=== PATIENT | female | born 1955 | race Caucasian/White ===

== ENCOUNTER 2017-01-07 12:14 | Outpatient (CLI) | payer BC | END 2017-01-07 12:15 | disposition home or self-care (01) | DX: I51.7 Cardiomegaly (principal) ==

== ENCOUNTER 2020-09-15 12:37 | Outpatient (CLI) | payer BC ==
--- NOTE | 2020-09-16 13:39 | Mammography Report ---
BILATERAL DIGITAL SCREENING MAMMOGRAM 3D/2D: 09/15/2020 CLINICAL: Routine screening. Comparison is made to exams dated: 01/07/2014 mammogram and 01/12/2013 mammogram - [facility]. There are scattered fibroglandular elements in both breasts. No significant masses, calcifications, or other findings are seen in either breast. There has been no significant interval change. IMPRESSION: NEGATIVE There is no mammographic evidence of malignancy. A 1 year screening mammogram is recommended. This exam was interpreted at Station ID: [id number]. NOTE: For mammograms, a report in lay terms will be sent to the patient. Approximately 15% of breast malignancies will not be visualized mammographically. In the management of a palpable breast mass, a negative mammogram must not discourage biopsy of a clinically suspicious lesion. Electronically Signed By: Vance Min M.D. aty/penrad:09/15/2020 14:06:13 ACR BI-RADS Category 1: Negative 3341F PARENCHYMAL PATTERN: (A) - The breast(s) demonstrate(s) scattered fibroglandular densities. BI-RADS CATEGORY: (1) - 1 RECOMMENDATION: (ANNUAL) - Recommend routine annual screening mammography. [id number] 1 year screening LATERALITY: (B)
== END 2020-09-15 12:38 | disposition home or self-care (01) ==
LOC: DI.N 12:37
DX: Z12.31 Encounter for screening mammogram for malignant neoplasm of breast (principal)
CPT/HCPCS: 77063; 77067

== ENCOUNTER 2020-10-08 12:39 | Outpatient (CLI) | payer BC ==
--- NOTE | 2020-10-08 17:46 | DEXA Report ---
PROCEDURE: Dexa Spine and/or Hip INDICATIONS: SCREENING FOR OSTEOPOROSIS TECHNIQUE: Dual energy x-ray absorptiometry (DXA) was performed on a [employer]. Regions measur ed are the AP Spine, femoral neck, and if needed forearm. COMPARISON: None. FINDINGS: Lumbar Spine: Bone Mineral Density 1.21 to g/cm/cm,T score 0.3, normal Left Hip: Bone Mineral Density 1.104 g/cm/cm,T score 0.8, normal Left Femoral Neck: Bone Mineral Density 1.072 g/cm/cm, T score 0.2, normal (T score greater or equal to -1.0: NORMAL) (T score from -1.1 to -2.4: OSTEOPENIA) (T score less than or equal to -2.5 to: OSTEOPOROSIS) Impression: Normal bone mineral density. Patients with diagnosis of osteoporosis or osteopenia should have regular bone mineral density assess ment. For those eligible for Medicare, routine testing is allowed once every 2 years. Testing frequ ency can be increased for patients who have rapidly progressing disease or for those who are receivin g medical therapy to restore bone mass. Reviewed by: Litzy Alexander MD, PhD on 10/08/2020 5:45 PM PST Approved by: Litzy Alexander MD, PhD on 10/08/2020 5:45 PM PST Station ID: [id number]
== END 2020-10-08 12:40 | disposition home or self-care (01) ==
LOC: DI 12:39
PROVIDERS: ATTEND Naturopath
DX: Z13.820 Encounter for screening for osteoporosis (principal)

== ENCOUNTER 2020-12-09 16:02 | Outpatient (CLI) | payer BC ==
--- NOTE | 2020-12-11 03:16 | Ultrasound Report ---
PROCEDURE: Chest INDICATIONS: LT SIDE ABD LUMP TECHNIQUE: Scanning over the area of current clinical concern was performed. COMPARISON: None. FINDINGS: The area of reported "lump" was identified by the patient and then evaluated sonographically. There i s a vaguely identifiable ovoid lnvpwoozw-eo-szua wall-fat layer presumed lipoma measuring 1.1 x 0.4 x 0.9 cm. IMPRESSION: Presumed small lipoma as cause of the palpable abnormality noted by the patient. This area should be further evaluated clinically over time and if unusual tenderness or increasing mass effect develops M R scanning with contrast would be recommended. Reviewed by: Alexx Clement MD on 12/10/2020 10:51 AM PST Approved by: Alexx Clement MD on 12/10/2020 10:51 AM [facility] Station ID: [id number]
== END 2020-12-09 16:03 | disposition home or self-care (01) ==
LOC: DI 16:02
PROVIDERS: ATTEND Internal Medicine
DX: R19.00 Intra-abdominal and pelvic swelling, mass and lump, unspecified site (principal); M54.5 Low back pain

== ENCOUNTER 2020-12-09 16:15 | Outpatient (CLI) | payer BC ==
--- NOTE | 2020-12-10 10:54 | Ultrasound Report ---
PROCEDURE: Retroperitoneal INDICATIONS: LOW BACK PAIN TECHNIQUE: Real-time scanning was performed of the retroperitoneal organs, with image documentation. COMPARISON: Body wall ultrasound performed same day.. FINDINGS: Kidneys: Kidneys are normal in size. Right kidney measures 10.3 cm long; left kidney measures 10.0 cm long. Right renal cortical thickness is 1.4 cm; left renal cortical thickness is 1.5 cm. No danyel d masses, hydronephrosis, or nephrolithiasis. Pancreas: Visualized portions of the pancreas are sonographically normal. Aorta: Visualized aorta is normal in caliber at 3 cm or less. Iliac arteries: Proximal common iliac arteries are normal in caliber at 2.5 cm or less. IVC: Intrahepatic inferior vena cava is patent. Miscellaneous: No free abdominal fluid. The prevoid bladder volume is 301 cc, postvoid residual is 1.8 IMPRESSION: Normal-appearing urinary tract with normal bladder function. Depending on the clinical status follow- up spine evaluation may be warranted by MRI or plain film imaging. Reviewed by: Alexx Clement MD on 12/10/2020 10:53 AM [facility] Approved by: Alexx Clement MD on 12/10/2020 10:53 AM [facility] Station ID: [id number]
== END 2020-12-09 23:59 | disposition home or self-care (01) ==
LOC: DI 16:15
PROVIDERS: ATTEND Naturopath
DX: M54.5 Low back pain (principal)

== ENCOUNTER 2021-01-12 08:00 | Outpatient (CLI) | payer BC ==
[2021-01-13 10:29] LABS: BILIRUBIN,URINE NEGATIVE (NEGATIVE); GLUCOSE, URINE (UA) NEGATIVE (NEGATIVE); KETONES,URINE (UA) NEGATIVE (NEGATIVE); LEUKOCYTE ESTERASE, URINE NEGATIVE (NEGATIVE); NITRITE,URINE NEGATIVE (NEGATIVE); OCCULT BLOOD,URINE NEGATIVE (NEGATIVE); PH,URINE 5.5 PH (5.0-7.5); PROTEIN,URINE NEGATIVE (NEGATIVE); UROBILINOGEN,URINE 0.2 (NORMAL) E.U./dL (NORMAL)
[2021-01-13 10:35] LABS: CLARITY,URINE CLEAR (CLEAR)
[2021-01-13 10:56] LABS: BACTERIA,URINE Few /HPF (None Seen); RBC,URINE 0-5 /HPF (0-5); SQUAMOUS EPITHELIAL CELL,UR FEW Squamous (<= Few); WBC,URINE 0-3 /HPF (0-5)
== END 2021-01-12 23:59 | disposition home or self-care (01) ==
LOC: LAB.R 08:00
PROVIDERS: ATTEND Obstetrics & Gynecology
DX: N89.8 Other specified noninflammatory disorders of vagina (principal); R30.0 Dysuria
CPT/HCPCS: 81001; 87086

== ENCOUNTER 2021-02-04 17:17 | Outpatient (CLI) | payer BC ==
[2021-02-04 20:04] LABS: BACTERIAL VAGINOSIS DNA POSITIVE (NEGATIVE); CANDIDA KRUSEI DNA NEGATIVE (NEGATIVE)
[2021-02-04 20:05] LABS: CANDIDA GLABRATA DNA NEGATIVE (NEGATIVE); CANDIDA GROUP DNA NEGATIVE (NEGATIVE); TRICHOMONAS VAGINALIS DNA NEGATIVE (NEGATIVE)
== END 2021-02-04 23:59 | disposition home or self-care (01) ==
LOC: LAB.R 17:17
PROVIDERS: ATTEND Obstetrics & Gynecology
DX: N89.8 Other specified noninflammatory disorders of vagina (principal)
CPT/HCPCS: 87661; 87801

== ENCOUNTER 2021-09-11 12:37 | Outpatient (CLI) | payer BC ==
--- NOTE | 2021-09-14 15:22 | Ultrasound Report ---
LIMITED ULTRASOUND OF RIGHT BREAST: 09/11/2021 CLINICAL: Palpable right breast lump. Comparison is made to exams dated: 09/11/2021 mammogram, 09/15/2020 mammogram, 01/07/2014 mammogram, and 01/12/2013 mammogram - [facility]. Color flow and real-time ultrasound of the right breast 11-12 o'clock region were performed. Perez sc madeleine images of the real-time examination were reviewed. There is a benign 0.6 cm x 0.6 cm x 0.3 cm simple cyst in the right breast at 12 o'clock middle depth 14 cm from the nipple. This correlates as palpated. Adjacent to this cyst, there are multiple add itional cysts. There also is a benign 0.7 cm x 0.7 cm x 0.6 cm normal lymph node in the right breast at 11 o'clock p osterior depth 14 cm from the nipple. This correlates as an incidental finding. IMPRESSION: BENIGN There is no sonographic evidence of malignancy. The 0.6 cm x 0.6 cm x 0.3 cm simple cyst in the right breast at 12 o'clock middle depth is benign. The 0.7 cm x 0.7 cm x 0.6 cm normal lymph node in the right breast at 11 o'clock posterior depth is b enign. A 1 year screening mammogram is recommended. This exam was interpreted at Station ID: [id number]. Electronically Signed By: Rashad lucia/cheli:09/11/2021 14:48:36 Ultrasound BI-RADS: 2 Benign BI-RADS CATEGORY: (2) - 2 RECOMMENDATION: (ANNUAL) - Recommend routine annual screening mammography. [id number] 1 year screening LATERALITY: (B)
--- NOTE | 2021-09-14 15:22 | Mammography Report ---
BILATERAL DIGITAL DIAGNOSTIC MAMMOGRAM 3D/2D: 09/11/2021 CLINICAL: Palpable right breast lump. Comparison is made to exams dated: 09/15/2020 mammogram, 01/07/2014 mammogram, and 01/12/2013 mammogra m - Located within [facility]. There are scattered fibroglandular elements in both breasts. No significant masses, calcifications, or other findings are seen in either breast. IMPRESSION: INCOMPLETE: NEEDS ADDITIONAL IMAGING EVALUATION There is no abnormality seen in the right breast to correspond with the palpable abnormality. Target ed ultrasound is recommended for further evaluation, which will be performed immediately following th is exam. This exam was interpreted at Station ID: [id number]. NOTE: For mammograms, a report in lay terms will be sent to the patient. Approximately 15% of breast malignancies will not be visualized mammographically. In the management of a palpable breast mass, a negative mammogram must not discourage biopsy of a clinically suspicious lesion. Electronically Signed By: Rashad lucia/cheli:09/11/2021 14:43:13 ACR BI-RADS Category 0: Incomplete 3340F PARENCHYMAL PATTERN: (A) - The breast(s) demonstrate(s) scattered fibroglandular densities. BI-RADS CATEGORY: (0) - 0 Ultrasound [id number] Immediate follow-up LATERALITY: (R)
== END 2021-09-11 12:38 | disposition home or self-care (01) ==
LOC: DI 12:37
PROVIDERS: ATTEND Internal Medicine
DX: N60.11 Diffuse cystic mastopathy of right breast (principal)

== ENCOUNTER 2021-11-10 16:44 | Outpatient (CLI) | payer BC ==
[2021-11-10 17:39] LABS: BASOPHILS # (AUTO) 0.1 10^3/uL (0.0-0.1); BASOPHILS % (AUTO) 1.3 %; EOSINOPHILS # (AUTO) 0.1 10^3/uL (0.0-0.7); EOSINOPHILS % (AUTO) 2.1 %; HCT - HEMATOCRIT 46.7 % (37.0-47.0); HGB - HEMOGLOBIN 15.2 g/dL (12.0-16.0); LYMPHOCYTES # (AUTO) 1.2 10^3/uL (1.5-3.5); LYMPHOCYTES % (AUTO) 23.3 %; MEAN CORPUSCULAR HEMOGLOBIN 30.4 pg (27.0-31.0); MEAN CORPUSCULAR HGB CONC 32.5 g/dL (32.0-36.0); MEAN CORPUSCULAR VOLUME 93.4 fL (81.0-99.0); MEAN PLATELET VOLUME 10.8 fL (7.9-10.8); MONOCYTES # (AUTO) 0.6 10^3/uL (0.0-1.0); MONOCYTES % (AUTO) 11.7 %; NEUTROPHILS # (AUTO) 3.2 10^3/uL (1.5-6.6); PLT - PLATELET COUNT 277 10^3/uL (130-450); RED CELL DISTRIBUTION WIDTH 13.5 % (12.0-15.0); WHITE BLOOD COUNT 5.2 x10^3/uL (4.8-10.8)
[2021-11-10 18:02] LABS: ALBUMIN/GLOBULIN RATIO 1.2 (1.0-2.2); ALKALINE PHOSPHATASE 69 IU/L (42-121); ALT ALANINE AMINOTRANSFERASE 27 IU/L (10-60); AST ASPARTATE AMINOTRANSFERASE 21 IU/L (10-42); BILIRUBIN,TOTAL 0.8 mg/dL (0.2-1.0); BUN - BLOOD UREA NITROGEN 9 mg/dL (6-20); CALCIUM 9.4 mg/dL (8.5-10.3); CARBON DIOXIDE - CO2 25 mmol/L (21-32); CHLORIDE 101 mmol/L (101-111); CHOL/HDL RATIO 4.2 (<4.4); CHOLESTEROL 225 mg/dL; CREATININE 0.6 mg/dL (0.4-1.0); GFR - MDRD 101 (>89); GLUCOSE 89 mg/dL (70-100); HDL CHOLESTEROL 54 mg/dL; LDL CHOLESTEROL,CALCULATED 152 mg/dL; LDL/HDL RATIO 2.8 (<4.4); POTASSIUM 3.9 mmol/L (3.5-5.0); SODIUM 137 mmol/L (135-145); TOTAL PROTEIN 7.4 g/dL (6.7-8.2); TRIGLYCERIDES 96 mg/dL; VLDL CHOLESTEROL 19 mg/dL
[2021-11-11 08:56] LABS: HEPATITIS C ANTIBODY NON-REACTIVE (NON-REACTIVE)
== END 2021-11-10 16:45 | disposition home or self-care (01) ==
LOC: LAB.R 16:44
PROVIDERS: ATTEND Internal Medicine
DX: Z00.00 Encounter for general adult medical examination without abnormal findings (principal); D64.9 Anemia, unspecified; R60.9 Edema, unspecified; F32.A Depression, unspecified; E78.5 Hyperlipidemia, unspecified; I10 Essential (primary) hypertension; G47.33 Obstructive sleep apnea (adult) (pediatric); Z13.6 Encounter for screening for cardiovascular disorders; Z11.59 Encounter for screening for other viral diseases; M54.6 Pain in thoracic spine; K51.90 Ulcerative colitis, unspecified, without complications
CPT/HCPCS: 80053; 80061; 83721; 84443; 85025; 86803

== ENCOUNTER 2021-11-20 13:28 | Outpatient (CLI) | payer BC ==
--- NOTE | 2021-11-20 15:41 | Ultrasound Report ---
PROCEDURE: Ext Limited Non Vascular INDICATIONS: HUMP TECHNIQUE: Real-time scanning was performed of the right shoulder, with image documentation. COMPARISON: None. FINDINGS: Limited ultrasound examination of superior right shoulder/lower neck at patient's reported area of palpable lump shows no discrete soft tissue mass or fluid collection. There is a small right lateral neck soft tissue lymph node measures 3 x 5 x 5 mm in size and appears within normal limits. IMPRESSION: 1. Benign-appearing right neck soft tissue lymph nodes as above. 2. No discrete soft tissue mass or fluid collection is seen in right shoulder/lower neck at patient's reported area of palpable lump. Reviewed by: Teto Estrada MD on 11/20/2021 3:40 PM PST Approved by: Teto Estrada MD on 11/20/2021 3:40 PM PST Station ID: [id number]
== END 2021-11-20 13:29 | disposition home or self-care (01) ==
LOC: DI 13:28
PROVIDERS: ATTEND Internal Medicine
DX: R59.0 Localized enlarged lymph nodes (principal)

== ENCOUNTER 2021-12-23 09:20 | Outpatient (CLI) | payer BC ==
--- NOTE | 2021-12-23 19:14 | CT Report ---
PROCEDURE: CT paranasal sinuses INDICATIONS: CHRONIC PANSINUSITIS TECHNIQUE: Noncontrast 3.0 mm axial images acquired from the frontal sinuses to the mid-sella, with coronal and sagittal reformats. For radiation dose reduction, the following was used: automated exposure control , adjustment of mA and/or kV according to patient size. COMPARISON: None. FINDINGS: Image quality: Excellent. Maxillary Sinuses: No bony remodeling or destruction. Sinuses are clear. Ethmoid Air Cells: No bony remodeling or destruction. Sinuses are clear. Sphenoid Sinuses: No bony remodeling or destruction. Sinuses are clear. Frontal Sinuses: No bony remodeling or destruction. Sinuses are clear. Ostiomeatal Complexes: Ostiomeatal complexes are patent. No Rodrick cells. Miscellaneous: Visualized intra-orbital contents are normal. No shaan bullosa. No nasal septal de viation. IMPRESSION: Unremarkable CT paranasal sinuses Reviewed by: Kwadwo Snyder MD on 12/23/2021 6:13 PM [place] Approved by: Kwadwo Snyder MD on 12/23/2021 6:13 PM [facility] Station ID: [id number]
== END 2021-12-23 09:21 | disposition home or self-care (01) ==
LOC: DI 09:20
PROVIDERS: ATTEND Otolaryngology
DX: J32.4 Chronic pansinusitis (principal)

== ENCOUNTER 2022-10-30 07:52 | Outpatient (CLI) | payer BC ==
[2022-10-30] MEDS ORDERED: iohexoL-300 100 ML VIAL ONE (08:16)
[2022-10-30] MEDS ORDERED: DIATRIZOATE MEGLU/DIATRIZO SOD 30 ML BOTTLE PO ONE ×2 (08:16→09:44)
[2022-10-30 08:24] LABS: CREATININE 0.6 mg/dL (0.4-1.0)
[2022-10-30] MEDS ORDERED: iohexoL-300 100 ML VIAL IVP ONE (09:43)
--- NOTE | 2022-10-30 11:41 | CT Report ---
PROCEDURE: CT abdomen and pelvis with contrast INDICATIONS: ABD PAIN CONTRAST: 100ml omni 300 TECHNIQUE: After the administration of contrast, 5 mm thick sections acquired from the diaphragms to the symphy sis. 5 mm thick coronal and sagittal reformats were acquired. For radiation dose reduction, the fol lowing was used: automated exposure control, adjustment of mA and/or kV according to patient size. COMPARISON: None. FINDINGS: Lower thorax: The lung bases are clear. Heart size normal. No hiatal hernia. Liver: Liver shows diffusely decreased attenuation without focal mass lesion. Biliary system: Cholecystectomy Pancreas: Unremarkable without mass or inflammation evident. Spleen: Normal in size and density. Adrenals: Normal morphology and density. Reproductive system: Unremarkable as visualized. Urinary system: Normal renal size and attenuation. No renal calculi, hydronephrosis, or solid mass p resent. Urinary bladder unremarkable. Gastrointestinal system: The bowel appears unremarkable with no evidence of bowel obstruction or inf lammation. The stomach appears unremarkable. Appendix: No findings to suggest acute appendicitis. Peritoneal spaces: No mesenteric or retroperitoneal adenopathy. No free air. No free fluid. Epigas tric surgical clips noted Vasculature: The IVC, aorta and iliac vasculature are unremarkable. Musculoskeletal: Small focal ventral hernia present. Right-sided colostomy noted. IMPRESSION: No acute CT findings in the abdomen and pelvis Reviewed by: Kwadwo Snyder MD on 10/30/2022 10:40 AM [facility] Approved by: Kwadwo Snyder MD on 10/30/2022 10:40 AM [facility] Station ID: [id number]
== END 2022-10-30 07:53 | disposition home or self-care (01) ==
LOC: LAB 07:52
PROVIDERS: ATTEND Internal Medicine
DX: R10.9 Unspecified abdominal pain (principal); R07.81 Pleurodynia; Z79.899 Other long term (current) drug therapy
CPT/HCPCS: 36415; 74177; 82565; Q9963; Q9967

== ENCOUNTER 2023-08-15 12:37 | Outpatient (CLI) | payer MEDICARE, BC ==
[2023-08-15 12:50] LABS: BASOPHILS # (AUTO) 0.1 10^3/uL (0.0-0.1); BASOPHILS % (AUTO) 1.2 %; EOSINOPHILS # (AUTO) 0.3 10^3/uL (0.0-0.7); EOSINOPHILS % (AUTO) 3.1 %; HCT - HEMATOCRIT 45.4 % (37.0-47.0); HGB - HEMOGLOBIN 14.6 g/dL (12.0-16.0); LYMPHOCYTES # (AUTO) 2.1 10^3/uL (1.5-3.5); LYMPHOCYTES % (AUTO) 25.7 %; MEAN CORPUSCULAR HEMOGLOBIN 30.2 pg (27.0-31.0); MEAN CORPUSCULAR HGB CONC 32.2 g/dL (32.0-36.0); MEAN CORPUSCULAR VOLUME 93.8 fL (81.0-99.0); MEAN PLATELET VOLUME 9.8 fL (7.9-10.8); MONOCYTES # (AUTO) 0.5 10^3/uL (0.0-1.0); MONOCYTES % (AUTO) 6.4 %; NEUTROPHILS # (AUTO) 5.3 10^3/uL (1.5-6.6); NEUTROPHILS % (AUTO) 63.2 %; PLT - PLATELET COUNT 308 10^3/uL (130-450); RED BLOOD COUNT 4.84 10^6/uL (4.20-5.40); RED CELL DISTRIBUTION WIDTH 13.4 % (12.0-15.0); WHITE BLOOD COUNT 8.3 x10^3/uL (4.8-10.8)
[2023-08-15 13:08] LABS: CALCIUM 9.8 mg/dL (8.5-10.3); CREATININE 0.6 mg/dL (0.6-1.3); POTASSIUM 3.7 mmol/L (3.5-4.5)
--- NOTE | 2023-08-15 20:33 | XRAY Report ---
PROCEDURE: Chest 2 View X-Ray INDICATIONS: DYSPNEA TECHNIQUE: 2 views of the chest were obtained. COMPARISON: None. FINDINGS: Surgical changes and devices: None. Lungs and pleura: No pleural effusions or pneumothorax. Lungs are clear. Mediastinum: Mediastinal contours appear normal. Heart size is normal. Bones and chest wall: No suspicious bony lesions. Overlying soft tissues appear unremarkable. IMPRESSION: Normal two-view chest x-ray Reviewed by: Kwadwo Snyder MD on 08/15/2023 7:32 PM [facility] Approved by: Kwadwo Snyder MD on 08/15/2023 7:32 PM [facility] Station ID: [id number]
== END 2023-08-15 12:38 | disposition home or self-care (01) ==
LOC: DI 12:37
PROVIDERS: ATTEND Internal Medicine
DX: R06.00 Dyspnea, unspecified (principal); F41.9 Anxiety disorder, unspecified; R23.2 Flushing; I10 Essential (primary) hypertension; R20.2 Paresthesia of skin; R55 Syncope and collapse; M54.6 Pain in thoracic spine
CPT/HCPCS: 36415; 80048; 85025

== ENCOUNTER 2023-09-08 09:32 | Outpatient (CLI) | payer MEDICARE, BC ==
--- NOTE | 2023-09-08 12:40 | CT Report ---
PROCEDURE: ABDOMEN/PELVIS W INDICATIONS: ABD PAIN CONTRAST: 100ml omni 300 TECHNIQUE: After the administration of intravenous contrast, 5 mm thick sections acquired from the diaphragms to the symphysis. 5 mm thick coronal and sagittal reformats were acquired. For radiation dose reducti on, the following was used: automated exposure control, adjustment of mA and/or kV according to elizabeth ent size. COMPARISON: CT abdomen pelvis 10/30/2022 FINDINGS: Image quality: Excellent. Lung bases and heart: Unremarkable. Liver: No solid mass. Gallbladder and biliary tree: Surgically absent. 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 Spleen: No splenomegaly. Pancreas: No pancreatic ductal dilation. Adrenals: No adrenal nodule. Kidneys and ureters: No hydronephrosis. No renal cystic lesion which requires follow up. No solid mas s. Bowel and peritoneum: No bowel distension. No pathologic free fluid. Status post colonic resection wi th right lower quadrant end colostomy. Multiple surgical clips throughout the abdomen are again noted Lymph nodes: No central or retroperitoneal adenopathy. Vessels: No infrarenal aortic aneurysm. Mild atherosclerotic vascular calcifications. PELVIS Reproductive organs: Unremarkable. Bladder: No abnormal wall thickening, accounting for underdistension. Pelvic lymph nodes: No pelvic adenopathy by size criteria. Bones: No aggressive osseous abnormality. Mild degenerative changes of the spine. Other: No significant ventral or inguinal hernia. IMPRESSION: No acute findings within the abdomen or pelvis to explain patient's symptoms. Stable chronic findings as described above. Reviewed by: Chadwick Varner MD on 09/08/2023 12:39 PM PST Approved by: Chadwick Varner MD on 09/08/2023 12:39 PM PST Station ID: [id number]
[2023-09-08] MEDS ORDERED: BARIUM SULFATE 450 ML BOTTLE PO ONE (13:34)
[2023-09-08] MEDS ORDERED: iohexoL-300 100 ML VIAL IVP ONE (13:35)
== END 2023-09-08 09:33 | disposition home or self-care (01) ==
LOC: DI 09:32
PROVIDERS: ATTEND Internal Medicine
DX: R10.9 Unspecified abdominal pain (principal)
CPT/HCPCS: 74177; A9270; Q9967

== ENCOUNTER 2023-12-12 08:00 | Outpatient (CLI) | payer MEDICARE, BC ==
[2023-12-12 18:05] LABS: BILIRUBIN,URINE NEGATIVE (NEGATIVE); GLUCOSE, URINE (UA) NEGATIVE (NEGATIVE); KETONES,URINE (UA) NEGATIVE (NEGATIVE); LEUKOCYTE ESTERASE, URINE SMALL (NEGATIVE); NITRITE,URINE NEGATIVE (NEGATIVE); OCCULT BLOOD,URINE NEGATIVE (NEGATIVE); PROTEIN,URINE NEGATIVE (NEGATIVE); UROBILINOGEN,URINE 0.2 (NORMAL) E.U./dL (NORMAL)
[2023-12-12 18:10] LABS: CLARITY,URINE HAZY (CLEAR)
[2023-12-12 18:17] LABS: BACTERIA,URINE Few /HPF (None Seen); RBC,URINE 0-5 /HPF (0-5); SQUAMOUS EPITHELIAL CELL,UR NONE SEEN (<= Few)
[2023-12-13 01:24] LABS: BACTERIAL VAGINOSIS DNA NEGATIVE (NEGATIVE); CANDIDA GLABRATA DNA NEGATIVE (NEGATIVE); CANDIDA GROUP DNA NEGATIVE (NEGATIVE); CANDIDA KRUSEI DNA NEGATIVE (NEGATIVE); TRICHOMONAS VAGINALIS DNA NEGATIVE (NEGATIVE)
== END 2023-12-12 23:59 | disposition home or self-care (01) ==
LOC: LAB.WC 08:00
PROVIDERS: ATTEND Obstetrics & Gynecology
DX: N89.8 Other specified noninflammatory disorders of vagina (principal); R30.0 Dysuria; Z93.2 Ileostomy status
CPT/HCPCS: 81001; 81003; 81514; 81599; 87070; 87077; 87086

== ENCOUNTER 2024-04-09 09:17 | Outpatient (CLI) | payer MEDICARE, BC ==
[2024-04-09 10:00] LABS: CRP - C-REACTIVE PROTEIN < 0.5 mg/dL (<0.5)
[2024-04-09 10:08] LABS: RHEUMATOID FACTOR NEGATIVE (Negative)
[2024-04-09 10:14] LABS: THYROID STIMULATING HORMONE 2.46 uIU/mL (0.34-5.60)
[2024-04-10 18:07] LABS: SJOGREN'S ANTI-SS-B <0.2 AI (0.0-0.9)
== END 2024-04-09 09:18 | disposition home or self-care (01) ==
LOC: LAB 09:17
PROVIDERS: ATTEND Internal Medicine
DX: K51.90 Ulcerative colitis, unspecified, without complications (principal); R20.8 Other disturbances of skin sensation; R51.9 Headache, unspecified; K11.7 Disturbances of salivary secretion; R23.2 Flushing; M25.50 Pain in unspecified joint
CPT/HCPCS: 36415; 81599; 84443; 85651; 86038; 86140; 86200; 86235; 86430; 86618

== ENCOUNTER 2024-04-17 15:19 | Outpatient (CLI) | payer MEDICARE, BC | END 2024-04-17 15:20 | disposition home or self-care (01) | LOC: LAB 15:19 | PROVIDERS: ATTEND Internal Medicine | DX: R23.2 Flushing (principal); R09.89 Other specified symptoms and signs involving the circulatory and respiratory systems; R55 Syncope and collapse | CPT/HCPCS: 83835 ==